=== PATIENT | male | born 1950 | race Caucasian/White ===

== ENCOUNTER 2016-09-22 14:02 | Inpatient (IN) | payer MEDICARE, MEDICAID ==
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
[2016-09-22 14:50] LABS: % BASOPHILS 0.4 % (0.0-2.0); % EOSINOPHILS 3.6 % (0.0-5.0); % LYMPHOCYTES 32.6 % (20.0-50.0); % MONOCYTES 5.1 % (2.0-10.0); % NEUTROPHILS 58.3 % (40.0-80.0); HEMATOCRIT 39.1 % (39.0-49.0); HEMOGLOBIN 13.1 gm/dL (12.6-17.4); MEAN CELL VOLUME 88.5 fl (80-99); MEAN CORPUSCULAR HEMOGLOBIN 29.5 pg (27.0-31.0); MEAN CORPUSCULAR HGB CONC 33.4 pg (28.0-36.0); MEAN PLATELET VOLUME 7.9 fl; NEUTROPHILE ABSOLUTE 2.9 Th/cmm (1.8-8.0); PLATELET COUNT 233 Th/cmm (150-400); RED BLOOD COUNT 4.42 Mil/cmm (3.80-5.80); RED CELL DISTRIBUTION WIDTH 14.8 % (11.5-20.0); WHITE BLOOD COUNT 5.1 Th/cmm (4.8-10.8)
[2016-09-22 15:02] LABS: INR 1.08 (0.5-1.4); PROTHROMBIN TIME (TEST) 10.7 SECONDS (9.5-11.5)
[2016-09-22 15:07] LABS: ALB/GLOB RATIO 1.2 (1.0-1.8); ALKALINE PHOSPHATASE 121 U/L (34-104); ANION GAP 8.2 (7.0-16.0); BILIRUBIN,TOTAL 0.2 mg/dL (0.3-1.0); BUN - UREA NITROGEN 29 mg/dL (7-25); BUN/CREATININE RATIO 26.4; CALCIUM SERUM 9.5 mg/dL (8.6-10.3); CARBON DIOXIDE 27.2 mEq/L (21.0-31.0); CHLORIDE 104 mEq/L (98-107); CREATININE - SERUM 1.1 mg/dL (0.7-1.3); GLUCOSE 89 mg/dL (70-105); LDH = LACTIC DEHYDROGENASE 138 U/L (140-271); POTASSIUM SERUM 4.4 mEq/L (3.5-5.1); SGOT 19 U/L (13-39); SGPT/ALT 28 U/L (7-52); SODIUM SERUM 135 mEq/L (136-145)
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
[2016-09-22] MEDS ORDERED: Phenytoin 200 MG in Sodium Chloride 0.9% 46 ML IV ONE (15:25)
--- NOTE | 2016-09-22 15:27 | Diagnostic Imaging Report ---
CT scan of the brain without intravenous contrast HISTORY: Seizures, history of brain tumor Total DLP equals 491 CTDI equals 30.6 Axial sections were obtained from the base of the skull to the vertex. There is a prominent ventricular system size along with enlargement cerebral sulci and subarachnoid cisterns reflecting atrophy. No acute parenchymal abnormality is. No intracerebral hemorrhage. There is an approximate 2.6 x 1.7 cm partially calcified density adjacent to the lateral aspect of the left occipital horn above the tentorium. There appears to be adjacent encephalomalacia with enlargement of the left occipital horn. Findings are consistent with patient's history of neoplasm. Exact etiology is uncertain. Correlation with patient's past medical records advised. No acute intracerebral hemorrhage. No other mass effect or shift of midline structures. IMPRESSION: 1. Partially calcified density/mass adjacent to the lateral aspect of the left occipital horn above the tentorium. The finding is consistent with patient's history of brain neoplasm. Exact etiology is uncertain. Correlation with the patient's past medical records advised. 2. Cerebral atrophy 3. No acute abnormalities
--- NOTE | 2016-09-22 19:50 | Admit Criteria Form ---
Admit Criteria Forms - Admit Criteria Diagnosis: SEIZURE Clinical Indications for Admission to Inpatient Care (Place 'X' for any and all applicable criteria): Admission is indicated for seizure and ANY ONE of the following(1)(2)(3)(4)(5): [ ]I. Inpatient admission required rather than observation care (Also use Seizure: Observation Care Criteria as appropriate) because of ANY ONE of the following: [ ]a) Altered mental status that is severe or persistent [ ]b) New focal neurologic deficit that is severe or persistent [ ]c) Metabolic disorder (eg, hypoglycemia, hyponatremia) that is severe or persistent [ ]d) Recurrent seizure [ ]e) Outpatient antiseizure regimen cannot be established (eg , patient cannot tolerate medication, initiation requires inpatient care) [ ]f) Need for ongoing intravenous infusion of antiseizure medication [ ]g) Cardiac arrhythmias of immediate concern [ ]h) Cerebral bleeding, hydrocephalus, or vasospasm monitoring (14) [ ]i) Increased intracranial pressure or cerebral edema monitoring (15) [ ]j) Other treatment or monitoring requiring inpatient admission [ ]II. Status epilepticus [A] or repetitive seizures not controlled with emergent treatment (6)(8) [X]III. Brain disorder (eg, tumor, edema, and hydrocephalus) that requiring monitoring or intervention available only at inpatient level of care. [ ]IV. Brain insult (eg, severe trauma, stroke, drug toxicity, or withdrawal) that requires monitoring or intervention available only at inpatient level of care (10)(11) Extended stay beyond goal length of stay may be needed for (22) [ ]a) Complications of status epilepticus [ ]b) Refractory status epilepticus [ ]c) Etiology-specific therapy for conditions such as [employer] infection, head injury,eclampsia, severe metabolic abnormalities, and brain tumor [ ]d) Residual neurologic damage, [ ]e) Initiation of significant change to anticonvulsant treatment [ ]f) Older patients (65 years or older) [ ]g) Patient requiring intubation (eg, to protect airway) The original [facility] [employer] content created by [facility] [employer] has been revised. The portions of the content which have been revised are identified through the use of italic text or in bold, and [facility] [employer] has neither reviewed nor approved the modified material. All other unmodified content is copyright [facility]. Please see references footnoted in the original [facility] edition 2016 Admit Criteria Met?: Yes
[2016-09-23] MEDS ORDERED: DICLOFENAC SODIUM 4 GM TP PRN (19:05)
[2016-09-23] MEDS ORDERED: Hydrocodone/APAP 5mg/325mg Tab PO PRN (19:05)
[2016-09-23] MEDS ORDERED: SODIUM CHLORIDE 0.9% IV ONE (20:41)
[2016-09-23] MEDS ORDERED: PHENYTOIN IV ONE (20:41)
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
[2016-09-24] MEDS ORDERED: Multivitamin Tab PO SCH (09:00)
[2016-09-24] MEDS ORDERED: Pantoprazole 40 mg EC Tab PO SCH (09:00)
[2016-09-24] MEDS ORDERED: INSULIN ASPART, RECOMBINANT 100 UNITS/ML SUBQ SCH (09:00)
[2016-09-24 11:20] VITALS: BP 93/58
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
== END 2016-09-24 16:33 | disposition left against medical advice (07) | DRG 101 ==
LOC: ER 14:02 → TELE 16:52 → MSI 09-24 03:00
PROVIDERS: ADMIT Internal Medicine Infectious Disease; ATTEND Internal Medicine Infectious Disease
DX: G40.909 Epilepsy, unspecified, not intractable, without status epilepticus (principal); I10 Essential (primary) hypertension; S50.11XA Contusion of right forearm, initial encounter; E11.9 Type 2 diabetes mellitus without complications; F32.9 Major depressive disorder, single episode, unspecified; F41.1 Generalized anxiety disorder; Y04.0XXA Assault by unarmed brawl or fight, initial encounter; Y93.89 Activity, other specified; Y92.89 Other specified places as the place of occurrence of the external cause; Y99.8 Other external cause status; Z85.841 Personal history of malignant neoplasm of brain; Z53.21 Procedure and treatment not carried out due to patient leaving prior to being seen by health care provider
CPT/HCPCS: 36415-UA; 70450-TC; 73090-TC-RT; 80053-TC; 80185-TC; 82948-90; 83605; 83615-TC; 85025-TC; 85610-TC; 85730-TC; 93005; 96375; J1165; J1815; Z7610